=== PATIENT | male | born 1975 | race Caucasian/White ===

== ENCOUNTER → 2020-03-18 12:24 | Outpatient (CLI) | payer SELFPAY ==
--- NOTE | 2020-03-18 12:30 | EKG12_ITS ---
Test Reason : HTN Blood Pressure : / mmHG Vent. Rate : 055 BPM Atrial Rate : 055 BPM P-R Int : 174 ms QRS Dur : 088 ms QT Int : 438 ms P-R-T Axes : 053 000 036 degrees QTc Int : 419 ms Sinus bradycardia Otherwise normal ECG Confirmed by LYLA LONG ([id number]), deputy editor in chief PRATIBHA BRICEÑO ([id number]) on 03/22/2020 2:10:09 PM Referred By: Kirstin Fuller Confirmed By:LYLA LONG
== END ==
LOC: CVS 12:27
PROVIDERS: Referring Provider Nurse Practitioner Family; Visit Provider Nurse Practitioner Family
DX: I10 Essential (primary) hypertension (principal)
CPT/HCPCS: 93005

== ENCOUNTER 2022-01-02 07:32 | Emergency (ER) | payer OTHER, SELFPAY ==
[2022-01-02 07:33] VITALS: BP 158/97; PULSE 93; RESP 16; TEMP 36.1; O2SAT 98; BMI 37.3
--- NOTE | 2022-01-02 07:45 | EKG12_ITS ---
Test Reason : SOB Blood Pressure : / mmHG Vent. Rate : 076 BPM Atrial Rate : 076 BPM P-R Int : 166 ms QRS Dur : 088 ms QT Int : 384 ms P-R-T Axes : 049 004 052 degrees QTc Int : 432 ms Normal sinus rhythm Normal ECG Confirmed by JEN LITTLEJOHN, MARION ([id number]), makeup editor KYRA BARRERA ([id number]) on 01/04/2022 9:00:27 AM Referred By: DENNIS Confirmed By:MARION LI MD
--- NOTE | 2022-01-02 07:45 | RAD_ITS ---
STUDY: X-RAY CHEST REASON FOR EXAM: Male, 46 years old. DIZZINESS, CP X 2 MONTHS. WORSE IN THE LAST WK. TECHNIQUE: AP COMPARISON: None. FINDINGS: EKG leads project over the chest. The lungs are clear and expanded. There is no demonstrated pleural abnormality. Normal size heart. Normal mediastinum and steven. Normal visualized pulmonary arteries. Normal visualized aortic arch and descending thoracic aorta. Normal visualized thoracic spine. Normal visualized ribs, clavicles, and shoulders. There is no demonstrated abnormality of the visualized soft tissue structures of the upper abdomen. RAD/Chest 1 View (Portable) IMPRESSION: Nonacute portable x-ray examination of the chest. Electronically Signed: Vignesh Collazo MD ([place]) at 8:12 EDT ,
--- NOTE | 2022-01-02 07:46 | EX.ED.DYSGE1 ---
HPI History of Present Illness Chief Complaint: Dizziness Narrative Narrative: Patient presents with feeling quite lightheaded, having palpitations throughout the last week and also passing out twice in the past week. He is denying chest pain, he tells me it is hard to take a deep breath but otherwise has no difficulty breathing he has no back pain or tearing sensation he has no pleuritic component. He has no lower extremity edema or calf pain. No DVT or PE risk factors. No head injury. He does not have a headache, no vision changes. No nausea or vomiting no neurological symptoms. [facility] Medical History Anxiety HTN (hypertension) Home Medications bupropion HCl 300 mg PO DAILY 01/02/22 [History Last Taken Unknown] buspirone 30 mg PO BID 01/02/22 [History Last Taken Unknown] hydrochlorothiazide 25 mg PO DAILY 01/02/22 [History Last Taken Unknown] lisinopril 20 mg PO BID 01/02/22 [History Last Taken Unknown] omeprazole 40 mg PO DAILY 01/02/22 [History Last Taken Unknown] pregabalin 200 mg PO TID 01/02/22 [History Last Taken Unknown] Allergy/AdvReac Type Severity Reaction Status Date / Time No Known Allergies Allergy Verified 01/02/22 07:54 Surgical History Hx of tonsillectomy Social History Smoking Status: Never smoker ROS ROS ED ROS Narrative Past medical history: Reviewed Medications: Reviewed Social history: Noncontributory Review of systems: All systems negative except as indicated General: No fever. Lightheadedness as in HPI Eyes: No visual changes ENT: No upper airway congestion, normal voice Neck: No neck pain Cardiovascular: No chest pain. Palpitations Respiratory: Tells me it is difficult to take a deep breath. He does not have pain when he takes a deep breath however. Otherwise he is not short of breath Gastrointestinal: No abdominal pain, nausea vomiting or diarrhea Genitourinary: No dysuria Musculoskeletal: Denies myalgias no difficulty with ambulation Skin: No rash Neurological: No memory loss, confusion or any focal weakness Psych: No recent behavioral changes Hematologic: No easy bleeding or easy bruising EXAM Physical Exam Narrative Exam Narrative: Physical exam General: Patient appears somewhat uncomfortable. He is diaphoretic. Head: Normocephalic, Atraumatic Eyes: Conjunctiva not pale ENT: Moist mucous membranes. No signs of dehydration Neck: Supple, Nontender, No lymphadenopathy Cardiovascular: Regular rate, Regular rhythm. I listened in all 4 points I cannot appreciate any murmur. Normal S1 and S2. I cannot hear an S3 or S4. Respiratory: No distress, CTA bilaterally. He is breathing comfortably and does not seem in any respiratory distress Abdomen: Soft, Nontender, Nondistended Back: Nontender, Normal Inspection. Negative for: CVA tenderness Extremities: Nontender, No edema. No calf pain. Negative Homans bilaterally Skin: Normal color, No rash Neurological: Alert, Normal Strength, Normal Sensation Psychological: Normal affect Const Vital Signs: 01/02/22 07:33 01/02/22 07:38 01/02/22 08:44 Temperature 96.9 F L Temperature Source Temporal Pulse Rate 93 61 Pulse Rate [Lying] Pulse Rate [Sitting (for 1 minute prior to obtaining)] Pulse Rate [Standing (for 1 minute prior to obtaining)] Respiratory Rate 16 14 Respiratory Effort Normal Non-Labored Blood Pressure 158/97 H 134/85 H Blood Pressure [Lying] Blood Pressure [Sitting (for 1 minute prior to obtaining)] Blood Pressure [Standing (for 1 minute prior to obtaining)] Blood Pressure Mean 117 101 Blood Pressure Mean [Lying] Blood Pressure Mean [Sitting (for 1 minute prior to obtaining)] Blood Pressure Mean [Standing (for 1 minute prior to obtaining)] Pulse Ox 98 99 Oxygen Delivery Method Room Air Room Air 01/02/22 08:45 Temperature Temperature Source Pulse Rate Pulse Rate [Lying] 71 Pulse Rate [Sitting (for 1 minute prior to obtaining)] 61 Pulse Rate [Standing (for 1 minute prior to obtaining)] 66 Respiratory Rate Respiratory Effort Blood Pressure Blood Pressure [Lying] 126/80 H Blood Pressure [Sitting (for 1 minute prior to obtaining)] 130/83 H Blood Pressure [Standing (for 1 minute prior to obtaining)] 133/89 H Blood Pressure Mean Blood Pressure Mean [Lying] 95 Blood Pressure Mean [Sitting (for 1 minute prior to obtaining)] 98 Blood Pressure Mean [Standing (for 1 minute prior to obtaining)] 103 Pulse Ox Oxygen Delivery Method MDM MDM MDM Narrative Medical decision making narrative: Patient has an unremarkable work-up he appears well. He has no chest pain. He has no shortness of breath. He has a normal work-up in the ED other than very slight hypokalemia which I addressed. He does not have any evidence of PE. He has no neurological symptoms he has no ataxia he has no vertigo, he does feel lightheaded and had 2 syncopal episodes both were more witnessed as syncope with brief loss of consciousness with relatively rapid for recovery and no seizure activity. I discussed with cardiology, Dr. Martini, I believe the patient is stable for discharge we will put him on a Holter monitor from the emergency department and get him set up for an echocardiogram. Patient strictly instructed that if anything changes or if he even has 1 more syncopal episode he is to return to the ED. Lab Data Labs: Laboratory Results - last 24 hr 01/02/22 01/02/22 01/02/22 07:40 07:40 07:40 WBC 5.8 RBC 5.40 Hgb 15.2 Hct 44.6 MCV 82.6 MCH 28.1 MCHC 34.1 RDW Std Deviation 41.7 RDW Coeff of Colton 13.9 Plt Count 272 MPV 9.6 Immature Gran % (Auto) 0.200 Neut % (Auto) 61.5 Lymph % (Auto) 27.9 Schleicher % (Auto) 7.9 Eos % (Auto) 1.6 Baso % (Auto) 0.9 Absolute Neuts (auto) 3.6 Absolute Lymphs (auto) 1.62 Nucleated RBC % 0 PT 12.7 INR 1.0 D-Dimer Quant (PE/DVT) 0.66 H* Sodium 136 Potassium 3.3 L Chloride 101 Carbon Dioxide 27.0 Anion Gap 8 BUN 17 Creatinine 1.52 H Estim Creat Clear Calc 62.70 Est GFR (MDRD) Af Amer 64 Est GFR (MDRD) Non-Af 53 L BUN/Creatinine Ratio 11.2 Glucose 140 H Calcium 9.1 Total Bilirubin 0.90 AST 28 ALT 48 Alkaline Phosphatase 110 Troponin I High Sens < 3 L Total Protein 8.6 H Albumin 4.2 Globulin 4.4 H Albumin/Globulin Ratio 1.0 Radiography Diagnostic Testing: Clinical Impression(s) from Imaging Studies Chest X-Ray 01/02/22 07:45 IMPRESSION: Nonacute portable x-ray examination of the chest. Electronically Signed: Vignesh Collazo MD ([place]) at 8:12 EDT , Chest CTA 01/02/22 08:21 IMPRESSION: 1. Less than optimal contrast enhancement of the pulmonary arteries but no suspicious pulmonary thromboemboli, thoracic aortic aneurysm or dissection. 2. No acute cardiopulmonary pathology. Electronically Signed: Axel Perdue MD at 9:06 EDT , EKG Initial EKG: Comments: Sinus rhythm with a rate of 76. Normal [place] and QTc intervals. No ischemic changes are seen. Interpreted by emergency doctor Discharge Plan Triage Chief Complaint: Dizziness ED Provider: Daniel Pollard Dx/Rx/DC Orders Clinical Impression: Syncope, Acute hypokalemia Instructions: Causes of Syncope, ED Hypokalemia Prescriptions: No Action bupropion HCl 300 mg tablet extended release 24 hr 300 mg PO DAILY RF: 0 lisinopril 20 mg tablet 20 mg PO BID RF: 0 omeprazole 40 mg capsule,delayed release(DR/EC) 40 mg PO DAILY RF: 0 buspirone 30 mg tablet 30 mg PO BID RF: 0 hydrochlorothiazide 25 mg tablet 25 mg PO DAILY RF: 0 pregabalin 200 mg capsule 200 mg PO TID RF: 0 Primary Care Provider: Arpit Wade Referrals: Arpit Wade MD [Primary Care Provider] - Daniel Martini MD [STAFF PHYSICIAN] - 2 Days Disposition Disposition: Home, Self Care
[2022-01-02 07:53] LABS: Absolute Lymphocyte Count 1.62 X10^3/uL (0.83-4.51); Absolute Neutrophil Count 3.6 X10^3/uL (2.0-7.7); Basophil# 0.05 X10^3/uL; Basophil% 0.9 % (0-1); Eosinophil# 0.09 X10^3/uL; Eosinophils% 1.6 % (0-5); Hematocrit 44.6 % (40-54); Hemoglobin 15.2 g/dL (13.0-16.5); Lymphocyte # 1.62 X10^3/ul (0.83-4.51); Lymphocyte % 27.9 % (19-41); Mean Corp Hgb Conc 34.1 g/dL (32-36); Mean Corpuscular Hgb 28.1 pg (27.0-32.0); Mean Corpuscular Volume 82.6 fL (80-94); Mean Platelet Vol. 9.6 fl (6.2-12.0); Monocyte# 0.46 X10^3/uL; Monocyte% 7.9 % (0-10); NRBC Flagged by Analyzer 0 % (0-5); Neutrophil # 3.57 X10^3/uL (2.7-7.7); Neutrophil % 61.5 % (47-70); Platelet Count 272 K/mm3 (150-450); RBC Distribution Width CV 13.9 % (11.6-14.6); RBC Distribution Width SD 41.7 fl (35.1-43.9); White Blood Count 5.8 K/mm3 (4.4-11.0)
[2022-01-02] MEDS: 0.9% Normal Saline 1,000 ML 1000 ML IV (07:53)
[2022-01-02 08:02] LABS: Prothrombin Time (Protime)PT. 12.7 SECONDS (11.7-14.9)
[2022-01-02 08:11] LABS: AST(SGOT) 28 U/L (15-37); Alanine Aminotransfer ALT/SGPT 48 U/L (16-61); Albumin, Serum 4.2 g/dL (3.2-5.0); Alkaline Phosphatase 110 U/L (45-117); Anion Gap 8 (5-15); BUN 17 mg/dL (7-18); BUN/Creat Ratio 11.2 RATIO (10-20); Calcium,Total 9.1 mg/dL (8.5-10.1); Chloride 101 mmol/L (98-107); Creatinine, Serum 1.52 mg/dL (0.70-1.30); EST Glomerular Filtration Rate 53 mL/min (>60); Est Glom Filt Rate - Afr Amer 64 mL/min (>60); Globulin 4.4 g/dL (2.2-4.2); Glucose 140 mg/dL (74-106); Potassium 3.3 mmol/L (3.5-5.1); Protein, Total 8.6 g/dL (6.4-8.2); Sodium Level 136 mmol/L (136-145); Troponin-I HS < 3 pg/mL (3.0-78.0)
[2022-01-02 08:18] LABS: D-Dimer Quantitative (DVT/PE) 0.66 FEU/ug/m (0.27-0.49)
--- NOTE | 2022-01-02 08:21 | CT_ITS ---
EXAM: CT ANGIOGRAPHY CHEST WITHOUT AND WITH INTRAVENOUS CONTRAST CLINICAL INDICATION: PE TECHNIQUE: Helically acquired angiography images were obtained of the chest without and with intravenous contrast. This CT exam was performed using one or more of the following dose reduction techniques: automated exposure control, adjustment of the mA and/or kV according to patient size, and/or use of iterative reconstruction technique. This report was created using [employer] report generation technology. MIP reconstructed images were created and reviewed. CONTRAST: IV 100mL Isovue-370 RADIATION DOSE: CTDIvol = 12.47 mGy, DLP = 535.69 mGy-cm COMPARISON: None. FINDINGS: PULMONARY ARTERIES: Less than optimal contrast enhancement of the pulmonary arteries, centrally and peripherally. Normal in caliber. No evidence of pulmonary embolism. AORTA: Unremarkable. Normal in caliber. No evidence of dissection. GREAT VESSELS OF AORTIC ARCH: Unremarkable. Normal in caliber. No evidence of dissection. LUNGS AND PLEURAL SPACES: Unremarkable. No mass. No consolidation or edema. No pleural effusion or thickening. No pneumothorax. HEART: Unremarkable. Heart size is normal. No pericardial effusion. No signs of right heart strain, ratio of right ventricle to left ventricle measures less than 1. MEDIASTINUM: Unremarkable. No mediastinal or hilar adenopathy. Esophagus is unremarkable. No hiatal hernia. THYROID: Unremarkable. No thyroid lesions. BONES/JOINTS: Unremarkable. No suspicious lytic or blastic abnormality. CT/CTA Chest W/WO Contrast IMPRESSION: 1. Less than optimal contrast enhancement of the pulmonary arteries but no suspicious pulmonary thromboemboli, thoracic aortic aneurysm or dissection. 2. No acute cardiopulmonary pathology. Electronically Signed: Axel Perdue MD at 9:06 EDT ,
[2022-01-02 08:44] VITALS: BP 134/85; PULSE 61; RESP 14; O2SAT 99
[2022-01-02 08:45] VITALS: BP 126/80; BP 130/83; BP 133/89; PULSE 61; PULSE 66; PULSE 71
[2022-01-02] MEDS: Potassium Chloride Oral Tablet 20 MEQ 40 MEQ PO (09:59)
[2022-01-02 10:07] VITALS: BP 140/86; PULSE 90; RESP 16; O2SAT 98
== END 2022-01-02 10:13 | disposition home or self-care (01) ==
PROVIDERS: Emergency Provider Emergency Medicine; PCP Family Medicine; Visit Provider Emergency Medicine
DX: R55 Syncope and collapse (principal); E87.6 Hypokalemia; I10 Essential (primary) hypertension; F41.9 Anxiety disorder, unspecified; Z79.899 Other long term (current) drug therapy
CPT/HCPCS: 71045; 71275; 80053; 84484; 85025; 85379; 85610; 93005; 96360; 96361; 99284; J7030; Q9967; A4216

== ENCOUNTER 2022-01-02 09:59 | Outpatient (CLI) | payer OTHER, SELFPAY | END 2022-01-02 23:59 | disposition home or self-care (01) | LOC: CVS 10:00 | PROVIDERS: PCP Family Medicine; Visit Provider Emergency Medicine | DX: R00.2 Palpitations (principal) | CPT/HCPCS: 93225; 93226 ==

== ENCOUNTER 2022-08-03 15:28 | Emergency (ER) | payer OTHER, SELFPAY ==
[2022-08-03 15:28] VITALS: BP 170/91; PULSE 91; RESP 16; TEMP 36.5; O2SAT 100; BMI 38.0
--- NOTE | 2022-08-03 15:35 | VDLE_ITS ---
Reason For Study: Pain RIGHT LEFT CFV is compressible, spontaneous, phasic, GSV is normal. competent and demonstrates normal CFV is compressible, spontaneous, phasic, augmentation. competent, and demonstrates normal Procedure augmentation. This is a venous duplex using B-mode, color FV is compressible, spontaneous, phasic, flow and spectral Doppler. competent and demonstrates normal Exam performed portable in ED. augmentation. A preliminary report was called and/or faxed POP V is compressible, spontaneous, phasic, to Adam. competent and demonstrates normal augmentation. T/P Trunk is compressible. LT PerV is compressible. Acute deep vein thrombosis is noted in the left PTV and SoleusV. VL/Venous Duplex US, Unilateral Interpretation Summary Acute deep venous thrombosis of the left posterior tibial and soleus veins. Patent and compressible left great saphenous vein Normal flow patterns right common femoral vein Ordering Physician: Axel Medina Referring Physician: Arpit Wade Performed By: Isabell Pham RVT
--- NOTE | 2022-08-03 16:21 | ED.VIS.LOWEX ---
HPI History of Present Illness Chief Complaint: Lower Extremity Injury Narrative Narrative: 46-year-old male who denies significant past medical history except for chronic leg swelling for which he wears compression stockings at times presents with left calf pain that he has had for the last few days. He denies any recent trauma or immobilization. 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 He denies any chest pain or shortness of breath. He states he touched his left calf and it was painful to touch. It may be more swollen than the other leg. He presents with concern for DVT of his left lower extremity. He denies other symptoms. No previous clotting disorder that is known to him. [facility] Medical History Anxiety HTN (hypertension) Home Medications bupropion HCl 300 mg 24 hr tablet, extended release 300 mg PO DAILY 01/02/22 [History Last Taken Unknown] buspirone 30 mg tablet 30 mg PO BID 01/02/22 [History Last Taken Unknown] hydrochlorothiazide 25 mg tablet 25 mg PO DAILY 01/02/22 [History Last Taken Unknown] lisinopril 20 mg tablet 20 mg PO BID 01/02/22 [History Last Taken Unknown] omeprazole 40 mg capsule,delayed release 40 mg PO DAILY 01/02/22 [History Last Taken Unknown] pregabalin 200 mg capsule 200 mg PO TID 01/02/22 [History Last Taken Unknown] apixaban 5 mg (74 tabs) tablets in a dose pack (Eliquis DVT-PE Treat 30D Start) 5 mg PO BID #74 tabs 08/03/22 [Rx Last Taken Unknown] Allergy/AdvReac Type Severity Reaction Status Date / Time No Known Allergies Allergy Verified 08/03/22 15:30 Surgical History Hx of tonsillectomy Social History Smoking Status: Never smoker ROS ROS ED ROS Narrative Constitutional: No fever, no chills. HEENT: No sore throat. No neck pain. No loss of vision. No rhinorrhea. Cardiovascular: No chest pain. No palpitations. No pedal edema. Respiratory: No cough, no shortness of breath. Abdominal: No abdominal pain. No nausea. No vomiting. Genitourinary: No dysuria. No hematuria. Musculoskeletal: Left calf pain. No arthralgias. Neurologic: No headaches. No dizziness. No lightheadedness. Skin: No rash. No change in color. Psychiatric: No depression. No anxiety. EXAM Physical Exam Narrative Exam Narrative: Afebrile. Vital signs noted. HEENT: Normocephalic. Atraumatic. PERRL, EOMI. Neck soft and supple. No point tenderness or step off. Cardiovascular: Regular rate and rhythm. No murmurs, rubs, or gallops appreciated. Respiratory: No tachypnea. Lungs clear to auscultation bilaterally. Gastrointestinal: Abdomen soft, nontender, with normoactive bowel sounds. No rebound or guarding. Neurological: Awake. Alert. Nonfocal, nonlateralizing. Skin: No rash. Normal color. No pallor. Musculoskeletal: No pedal edema. Full range of motion extremities. No appreciable swelling of left calf over right. No erythema. No palpable cord. No proximal thigh tenderness. Full range of motion of joints. Palpable dorsalis pedis pulse. Const Vital Signs: 08/03/22 15:28 Temperature 97.7 F L Temperature Source Temporal Pulse Rate 91 Respiratory Rate 16 Blood Pressure 170/91 H Blood Pressure Mean 117 Pulse Ox 100 Oxygen Delivery Method Room Air MDM MDM MDM Narrative Medical decision making narrative: Ultrasound was obtained of the right lower extremity. There is acute deep venous thrombosis in the left PTV and soleus veins. I discussed patient with Dr. Bazan. As they are below the knee, he could do serial ultrasounds, however through shared decision making with the patient he has elected to be on anticoagulants. He will follow-up with Dr. Bazan within the next 7 to 10 days. He was informed of the risk of GI bleeding and intracranial hemorrhage, along with catastrophic traumatic bleeding and acknowledges an understanding. Initially I wrote for Xarelto, but we have starter pack/30-day trial for Eliquis which I think would benefit the patient. I feel he can be discharged safely home with follow-up. Return instructions to the emergency department were reviewed. Disposition is discharged home in stable condition. Discharge Plan Triage Chief Complaint: Lower Extremity Injury ED Provider: Axel Medina Dx/Rx/DC Orders Clinical Impression: DVT of lower extremity (deep venous thrombosis), Pain of left calf Instructions: ED Deep Vein Thrombosis (DVT) Prescriptions: New Chris DVT-PE Treat 30D Start 5 mg (74 tabs) tablets,dose pack 5 mg PO BID Qty: 74 0RF No Action bupropion HCl 300 mg tablet extended release 24 hr 300 mg PO DAILY lisinopril 20 mg tablet 20 mg PO BID omeprazole 40 mg capsule,delayed release(DR/EC) 40 mg PO DAILY buspirone 30 mg tablet 30 mg PO BID hydrochlorothiazide 25 mg tablet 25 mg PO DAILY pregabalin 200 mg capsule 200 mg PO TID Primary Care Provider: Arpit Wade Referrals: Arpit Wade MD [Primary Care Provider] - Renzo Bazan MD [Med Staff - Active Staff] - 1 Week Activity Restrictions/Additional Instructions: Follow-up with Dr. Renzo Bazan within the next week. They will reach out to you tomorrow possibly. If you do not hear from them, call the office for an appointment to be seen within the next 7 to 10 days. Take the Xarelto as directed. Disposition Disposition: Home, Self Care
[2022-08-03] MEDS: APIXABAN 5 MG TABLET 10 MG PO (16:32)
== END 2022-08-03 16:36 | disposition home or self-care (01) ==
PROVIDERS: Emergency Provider Emergency Medicine; PCP Family Medicine; Visit Provider Emergency Medicine
DX: I82.442 Acute embolism and thrombosis of left tibial vein (principal); I82.462 Acute embolism and thrombosis of left calf muscular vein; I10 Essential (primary) hypertension; F41.9 Anxiety disorder, unspecified; Z79.82 Long term (current) use of aspirin; Z79.899 Other long term (current) drug therapy
CPT/HCPCS: 93971; 99283

== ENCOUNTER → 2022-10-13 | Outpatient (CLI) | payer OTHER, SELFPAY ==
--- NOTE | 2022-10-13 08:02 | VDLE_ITS ---
Reason For Study: SWELLING RIGHT LEFT CFV is compressible, spontaneous, phasic, CFV is compressible, spontaneous, phasic, competent and demonstrates normal competent, and demonstrates normal augmentation. augmentation. FV is compressible, spontaneous, phasic, FV is compressible, spontaneous, phasic, competent and demonstrates normal competent and demonstrates normal augmentation. augmentation. POP V is compressible, spontaneous, phasic, POP V is compressible, spontaneous, phasic, competent and demonstrates normal competent and demonstrates normal augmentation. augmentation. T/P Trunk is compressible. T/P Trunk is compressible. PTV is compressible. PTV is compressible. RT PerV is compressible. LT PerV is compressible. SFJ is competent and measures 0.59 x 0.56 cm. LT Soleous V is compressible. GSV proximal thigh measures 0.53 x 0.50 cm. SFJ is competent and measures 0.83 x 0.78 cm. GSV at knee measures 0.49 x 0.47 cm. GSV proximal thigh measures 0.49 x 0.43 cm. GSV is competent throughout. GSV at knee measures 0.62 x 0.45 cm. SSV proximal calf is competent and measures SSV proximal calf is competent and measures 0.47 x 0.38 cm. 0.40 x 0.38 cm. Procedure Exam performed in department. The exam was diagnostic. VL/Venous Duplex US - Warner Extrem Interpretation Summary Deep veins of the bilateral lower extremities are patent and compressible segme ntally. There is no evidence of bilateral lower extremity deep vein thrombosis. The bilateral great saphenous veins appear patent and compressible segmentally. Negative for reflux bilateral Ordering Physician: Yi Arnold Referring Physician: Arpit Wade Performed By: Reanna Kong, MARIA DEL CARMENCS, RVT
== END | disposition home or self-care (01) ==
LOC: CVS 08:02
PROVIDERS: PCP Family Medicine; Visit Provider Surgery Trauma Surgery
DX: I87.2 Venous insufficiency (chronic) (peripheral) (principal); M79.89 Other specified soft tissue disorders
CPT/HCPCS: 93970

== ENCOUNTER 2022-11-03 21:11 | Emergency (ER) | payer OTHER, SELFPAY ==
[2022-11-03 21:11] VITALS: BP 87/52; PULSE 79; RESP 15; TEMP 36.8; O2SAT 99; BMI 39.9
--- NOTE | 2022-11-03 21:59 | EKG12_ITS ---
Test Reason : DYSRHYTHMIA Blood Pressure : / mmHG Vent. Rate : 081 BPM Atrial Rate : 081 BPM P-R Int : 172 ms QRS Dur : 084 ms QT Int : 372 ms P-R-T Axes : 042 013 040 degrees QTc Int : 432 ms Normal sinus rhythm Low voltage QRS Borderline ECG Confirmed by ELVIS LITTLEJOHN, YUSUF ([id number]), acquisition editor KYRA BARRERA ([id number]) on 11/06/2022 1:57:09 PM Referred By: JULIO C Confirmed By:YUSUF LEAL MD
--- NOTE | 2022-11-03 22:00 | EDS_ITS ---
HPI History of Present Illness Chief Complaint: Syncope Informant: patient Narrative Narrative: Brought in by EMS for syncopal episode. Patient states he was playing with his 1-year-old child, absent on the couch, he felt lightheaded and passed out. No prodromal chest pains or palpitations. He woke up and threw up. Currently not nauseated. History of hypertension on medications. Over the past week had had flulike symptoms of mild headache and myalgias that resolved. No previous vomiting or diarrhea. No fevers. He states a year ago he had an event while laying in bed and watching TV. He did not get evaluated immediate at that time. He reports he discussed this with his PCP. Reports there was blood testing performed however no discussion of any heart monitors. Denies urinary symptoms. Denies cough. Prior similar symptoms: Yes PFSH [facility] Medical History Anxiety DVT (deep venous thrombosis) HTN (hypertension) Kidney stones Home Medications hydrochlorothiazide 25 mg tablet 25 mg PO DAILY 01/02/22 [History Last Taken Unknown] lisinopril 20 mg tablet 20 mg PO BID 01/02/22 [History Last Taken Unknown] omeprazole 40 mg capsule,delayed release 40 mg PO DAILY 01/02/22 [History Last Taken Unknown] pregabalin 200 mg capsule 200 mg PO TID 01/02/22 [History Last Taken Unknown] aspirin 81 mg tablet,delayed release 81 mg PO DAILY 08/08/22 [History Last Taken Unknown] sucralfate 100 mg/mL oral suspension (Carafate) 1 g PO QACHS 08/08/22 [History Last Taken Unknown] bupropion HCl 300 mg 24 hr tablet, extended release 300 mg PO DAILY 11/03/22 [History Last Taken Unknown] Allergy/AdvReac Type Severity Reaction Status Date / Time No Known Allergies Allergy Verified 08/08/22 13:49 Surgical History Hx of tonsillectomy Social History Smoking Status: Never smoker ROS ROS ED Constitutional Constitutional ED: Denies chills, fever(s) or sweats Eyes Eyes: Denies change in vision ENT ENT ED: Denies dysphagia or sore throat Cardiovascular Cardiovascular: Denies chest pain, leg edema, palpitations or racing heartbeat Respiratory/Chest Respiratory/Chest: Denies cough, dyspnea or dyspnea on exertion Gastrointestinal Gastrointestinal: Denies abdominal pain, diarrhea, nausea or vomiting Genitourinary Genitourinary ED: Denies dysuria, hematuria or urinary frequency Musculoskeletal Musculoskeletal: Denies back pain, extremity pain or neck pain Integumentary Denies rash or wounds Neurologic Neurologic: Denies headache(s), paresthesias or weakness EXAM Physical Exam Const Vital Signs: 11/03/22 21:11 11/03/22 21:11 11/03/22 23:02 Temperature 98.2 F Temperature Source Oral Pulse Rate 79 63 Respiratory Rate 15 16 Respiratory Effort Normal Non-Labored Respiratory Pattern Normal Blood Pressure 87/52 L 75/45 L Blood Pressure Mean 63 55 Pulse Ox 99 95 Oxygen Delivery Method Room Air Room Air 11/03/22 23:36 11/03/22 22:51 11/03/22 23:07 Temperature Temperature Source Pulse Rate 87 34 L 46 L Respiratory Rate 18 16 Respiratory Effort Respiratory Pattern Blood Pressure 82/45 L 61/38 L Blood Pressure Mean 57 45 Pulse Ox 98 98 Oxygen Delivery Method Room Air Room Air 11/03/22 23:57 Temperature Temperature Source Pulse Rate 88 Respiratory Rate 18 Respiratory Effort Respiratory Pattern Blood Pressure 101/60 Blood Pressure Mean 73 Pulse Ox 98 Oxygen Delivery Method Room Air Positive well nourished and well developed General Appearance ED: well developed and NAD HEENT Reports moist mucous membranes normocephalic and atraumatic Eyes PERRL, EOMs intact bilaterally and conjunctivae normal General Eye ED: Yes normal appearance of both eyes Neck no lymphadenopathy and supple General: Negative for tenderness Chest Wall Chest: Negative for tenderness Resp normal respiratory effort and normal air movement Effort and Inspection: symmetric chest movement; Negative for respiratory distress Cardio regular rate, regular rhythm and no murmurs Peripheral Pulses: pulses 2+ throughout GI normal to inspection, nondistended, normoactive bowel sounds and non-tender Palpation: Negative for guarding or rebound tenderness present Back/Spine no CVA tenderness and no thoracic nor lumbar tenderness Extremity normal to inspection General Extremety ED: Negative for edema or tenderness General Extremity: Negative for edema Neuro oriented x3, CN's II-XII intact bilaterally and no sensory deficits noted Sensorium / Orientation: awake and alert Skin no rashes or lesions noted and no wounds MDM MDM MDM Narrative Medical decision making narrative: Interventions / MDM: Differential diagnosis: Syncope, cardiac dysrhythmia, electrolyte abnormalities Diagnosis considered but do not suspect: Pulmonary embolism however no prodromal dyspnea. My EKG interpretation: Sinus rate of 81, no ST or T wave changes QTc 432. EKG #2 sinus rate of 88, no acute changes. Imaging independently reviewed and interpreted by myself: 1 view chest x-ray: Questionable density left lower lobe, per radiology possible infiltrate or hematoma. External documents reviewed: N/A Test considered but not ordered:N/A ED course: Patient had syncopal episode prodromal lightheaded symptoms while sitting. Similar episode a year ago while laying down. He had no evaluation then. EKG normal rhythm was given fluids for his soft blood pressure. Labs were ordered for evaluation. White count 12 potassium 3.4 creatinine 2.39, it was 1.5, 10 months ago in the system. Troponin 7. 2250: I was called to room patient had a bradycardic episode in the 20s blood pressure 60s. He was given atropine, heart rate improved up into the 80s pressure up to the 70s with continued fluids. He blood pressure was responding. Bradycardic episode added magnesium level 2.1 TSH also added that 9.47, free T4 level was added. I spoke with on-call optical glass sawyer Dr. Shannon, discussed patient's history and findings, he states there is no specialist available for pacemaker placement over the weekend if needed. He recommended transfer. I spoke with the patient he has been [facility] 2019 for kidney stones. Therefore I reached out to them and discussed with hospitalist Dr. Watt, at that time heart rate in the 80s systolic blood pressure 101. Discussed patient history and findings. Discussed pending T4 level. He is excepted to his service at [facility]. 0015: Heart rate in the 80s blood pressure 96/47. Will await transport. Re-evaluation: stable Disposition discussed with patient/family/significant other: Patient Case discussed with consulting clinician: Fourdrinier Tender, Dr. Shannon, transfer line hospitals [facility] Dr. Watt Lab Data Attestation: I reviewed the patient's lab results. Labs: Laboratory Results - last 24 hr 11/03/22 11/03/22 11/03/22 20:58 20:58 20:58 WBC 12.0 H RBC 5.43 Hgb 14.8 Hct 46.1 MCV 84.9 MCH 27.3 MCHC 32.1 RDW Std Deviation 44.7 H RDW Coeff of [place] 14.6 Plt Count 289 MPV 10.5 Immature Gran % (Auto) 0.500 Neut % (Auto) 53.3 Lymph % (Auto) 32.6 [place] % (Auto) 10.7 H Eos % (Auto) 1.8 Baso % (Auto) 1.1 H Absolute Neuts (auto) 6.4 Absolute Lymphs (auto) 3.89 Nucleated RBC % 0 Sodium 138 Potassium 3.4 L Chloride 98 Carbon Dioxide 28.0 Anion Gap 12 BUN 21 H Creatinine 2.39 H Estim Creat Clear Calc 39.88 Est GFR (MDRD) Af Amer 38 L Est GFR (MDRD) Non-Af 31 L BUN/Creatinine Ratio 8.8 L Glucose 118 H Calcium 9.7 Magnesium 2.1 Troponin I High Sens 7 TSH 9.47 H Radiography Diagnostic Testing: Clinical Impression(s) from Imaging Studies Chest X-Ray 11/03/22 22:05 IMPRESSION: Patchy left basilar airspace opacity which could represent atelectasis, contusion, pneumonia in the appropriate setting Electronically Signed: Nicho Sanchez MD at 22:26 EST Reading Location ID and State: [address] [place] [address] Tel , Service support , EKG Initial EKG: Attestation: I personally reviewed and interpreted this EKG as follows: Comments: Sinus rate of 81, no ST or T wave changes QTc 432 Follow-up EKG: Attestation: I personally reviewed and interpreted this EKG as follows: Comments: At 2304: sinus rate of 88, no ST or T wave changes QTc 452. Critical Care Time Critical Care Time: Yes Critical care time (excluding procedures): 30-74 minutes, Discussing w/Patient &/or Family/Program Scheduler, Discussing w/Consultants, Performing Direct Patient Care at Bedside and - (40 minutes) Discharge Plan Triage Chief Complaint: Syncope ED Provider: Walt Calhoun Dx/Rx/DC Orders Clinical Impression: Syncope, Symptomatic bradycardia, HERSON (acute kidney injury), Acute hypokalemia, Elevated TSH Prescriptions: No Action aspirin 81 mg tablet,delayed release (DR/EC) 81 mg PO DAILY sucralfate [Carafate] 100 mg/mL suspension 1 g PO QACHS Rx Instructions: pill form taken lisinopril 20 mg tablet 20 mg PO BID omeprazole 40 mg capsule,delayed release(DR/EC) 40 mg PO DAILY hydrochlorothiazide 25 mg tablet 25 mg PO DAILY pregabalin 200 mg capsule 200 mg PO TID bupropion HCl 300 mg tablet extended release 24 hr 300 mg PO DAILY Label Comments: take 1 tablet by mouth every morning Primary Care Provider: Arpit Wade Referrals: Arpit Wade MD [Primary Care Provider] - Disposition Disposition: DC/Tx to Another Type of HCF
--- NOTE | 2022-11-03 22:05 | RAD_ITS ---
INDICATION: syncope EXAMINATION/TECHNIQUE: X-RAY - XR Chest 1 View COMPARISON: January 02, 2022. FINDINGS: LINES/DEVICES: None. LUNGS: Left basilar patchy airspace opacities. No right lung consolidation. No effusion. No pneumothorax.. MEDIASTINUM AND CARDIOVASCULAR STRUCTURES: Cardiac silhouette not enlarged. BONES AND SOFT TISSUES: Unremarkable. RAD/Chest 1 View (Portable) IMPRESSION: Patchy left basilar airspace opacity which could represent atelectasis, contusion, pneumonia in the appropriate setting Electronically Signed: Nicho Sanchez MD at 22:26 EST ,
[2022-11-03 22:21] LABS: Absolute Lymphocyte Count 3.89 X10^3/uL (0.83-4.51); Absolute Neutrophil Count 6.4 X10^3/uL (2.0-7.7); Basophil# 0.13 X10^3/uL; Basophil% 1.1 % (0-1); Eosinophil# 0.21 X10^3/uL; Eosinophils% 1.8 % (0-5); Hematocrit 46.1 % (40-54); Hemoglobin 14.8 g/dL (13.0-16.5); Lymphocyte # 3.89 X10^3/ul (0.83-4.51); Lymphocyte % 32.6 % (19-41); Mean Corp Hgb Conc 32.1 g/dL (32-36); Mean Corpuscular Hgb 27.3 pg (27.0-32.0); Mean Corpuscular Volume 84.9 fL (80-94); Mean Platelet Vol. 10.5 fl (6.2-12.0); Monocyte# 1.28 X10^3/uL; Monocyte% 10.7 % (0-10); NRBC Flagged by Analyzer 0 % (0-5); Neutrophil # 6.38 X10^3/uL (2.7-7.7); Neutrophil % 53.3 % (47-70); Platelet Count 289 K/mm3 (150-450); RBC Distribution Width CV 14.6 % (11.6-14.6); RBC Distribution Width SD 44.7 fl (35.1-43.9); Red Blood Count 5.43 M/mm3 (4.6-6.2)
[2022-11-03] MEDS: 0.9% Normal Saline 1,000 ML 1000 ML IV (22:30)
[2022-11-03 22:44] LABS: Anion Gap 12 (5-15); BUN 21 mg/dL (7-18); BUN/Creat Ratio 8.8 RATIO (10-20); Calcium,Total 9.7 mg/dL (8.5-10.1); Chloride 98 mmol/L (98-107); Creatinine, Serum 2.39 mg/dL (0.70-1.30); EST Glomerular Filtration Rate 31 mL/min (>60); Est Glom Filt Rate - Afr Amer 38 mL/min (>60); Estimated Creatinine Clearance 39.88 ml/min; Glucose 118 mg/dL (74-106); Potassium 3.4 mmol/L (3.5-5.1); Sodium Level 138 mmol/L (136-145); Troponin-I HS 7 pg/mL (3.0-78.0)
[2022-11-03 22:51] VITALS: PULSE 34
[2022-11-03] MEDS: Atropine Sulfate 1 MG/10 ML Syringe IV (22:58)
--- NOTE | 2022-11-03 23:00 | EKG12_ITS ---
Test Reason : REPEAT EKG Blood Pressure : / mmHG Vent. Rate : 088 BPM Atrial Rate : 088 BPM P-R Int : 172 ms QRS Dur : 084 ms QT Int : 374 ms P-R-T Axes : 057 013 040 degrees QTc Int : 452 ms Normal sinus rhythm Normal ECG Confirmed by ELVIS LITTLEJOHN, YUSUF ([id number]), publications editor KYRA BARRERA ([id number]) on 11/06/2022 1:57:23 PM Referred By: TL Confirmed By:YUSUF LEAL MD
--- NOTE | 2022-11-03 23:00 | ED.RN ---
PATIENT CARDIAC ALARM WENT OFF, NURSING STAFF NOTICED PATIENT WAS BRADYCARDIC IN THE LOW 30'S TO LOW 40'S. NURSING STAFF WENT INTO PATIENTS ROOM. PATIENT PALE, DIAPHORETIC, AND STATING HES NOT FEELING WELL. PATIENT HYPOTENSIVE. PATIENT HEAD LOWERED, FLUIDS OPENED WIDE OPEN AND DR. DANIEL MADE AWARE AND IN TO SEE PATIENT AT THIS TIME
[2022-11-03 23:02] VITALS: BP 75/45; PULSE 63; RESP 16; O2SAT 95
[2022-11-03 23:07] VITALS: BP 61/38; PULSE 46; RESP 16; O2SAT 98
[2022-11-03 23:29] LABS: Magnesium 2.1 mg/dL (1.6-2.6); Thyroid Stim Hormone (TSH) 9.47 uIU/mL (0.358-3.74)
[2022-11-03 23:36] VITALS: BP 82/45; PULSE 87; RESP 18; O2SAT 98
[2022-11-03] MEDS: 0.9% Normal Saline 1,000 ML 999 ML IV (23:40)
[2022-11-03 23:57] VITALS: BP 101/60; PULSE 88; RESP 18; O2SAT 98
[2022-11-04] VITALS: BP 96/47; PULSE 86; RESP 18; O2SAT 97
[2022-11-04] MEDS: Potassium Chloride Oral Tablet 20 MEQ 40 MEQ PO (00:38)
[2022-11-04 00:39] VITALS: BP 98/52; PULSE 81; RESP 16; O2SAT 96
[2022-11-04 00:39] LABS: T4 Free Direct 0.99 ng/dL (0.76-1.46)
[2022-11-04 01:39] VITALS: PULSE 78; RESP 18; O2SAT 98
[2022-11-04 02:40] VITALS: BP 108/67; PULSE 78; RESP 16; O2SAT 97
[2022-11-04 04:00] VITALS: BP 108/67; PULSE 72; RESP 18; O2SAT 97
[2022-11-04 05:37] VITALS: BP 112/65; PULSE 83; RESP 18; O2SAT 97
== END 2022-11-04 05:44 | disposition other institution (70) ==
PROVIDERS: Emergency Provider Emergency Medicine; PCP Family Medicine; Visit Provider Emergency Medicine
DX: R55 Syncope and collapse (principal); N17.9 Acute kidney failure, unspecified; I10 Essential (primary) hypertension; R00.1 Bradycardia, unspecified; E87.6 Hypokalemia; R94.6 Abnormal results of thyroid function studies; Z79.82 Long term (current) use of aspirin; Z79.899 Other long term (current) drug therapy
CPT/HCPCS: 71045; 80048; 83735; 84439; 84443; 84484; 85025; 87428; 93005; 99285; J7030; A4216